=== PATIENT | female | born 1995 | race Caucasian/White ===

== ENCOUNTER 2018-01-08 14:04 | Emergency (ER) | payer OTHER ==
[~2018-01-08] VITALS: Ht 160 cm; Wt 68.0 kg
[~2018-01-08 14:04] MED LIST: AMOXICILLIN 50500 MG PO; FLAGYL500 MG PO; IBUPROFEN 800800 M1 PO; MEDROLDOSEPACK PO; NAPROSYN500 MG PO; NORCO 5-325 TA1 EACH PO; ONDANSETRON HCL4 M2 PO; TORADOL 10 MG T10 MG PO; TRAMADOL 50 MG50 MG PO; ZOFRAN ODT4 MG PO; ZOFRAN4 MG PO
[2018-01-08 14:13] VITALS: BP 85/48
[2018-01-08] MEDS ORDERED: PENICILLIN VK500 MG PO (15:09)
[2018-01-08] MEDS ORDERED: NORCO 5-325 TA1 EACH PO (15:09)
== END 2018-01-08 15:23 | disposition home or self-care (01) ==
LOC: M.ERS 14:04
DX: K08.89 Other specified disorders of teeth and supporting structures (principal); J45.909 Unspecified asthma, uncomplicated; F17.200 Nicotine dependence, unspecified, uncomplicated; Z90.89 Acquired absence of other organs; Z98.890 Other specified postprocedural states; Z91.040 Latex allergy status; Z88.4 Allergy status to anesthetic agent

== ENCOUNTER 2018-09-29 16:39 | Emergency (ER) | payer OTHER ==
[~2018-09-29] VITALS: Ht 160 cm; Wt 74.8 kg
[~2018-09-29 16:39] MED LIST changes: +PENICILLIN VK500 MG PO
[2018-09-29 17:50] LABS: URINE BILIRUBIN NEGATIVE (Negative); URINE BLOOD 3+ (Negative); URINE CLARITY CLEAR; URINE COLOR YELLOW; URINE GLUCOSE-RANDOM NEGATIVE (Negative); URINE KETONES NEGATIVE (Negative); URINE LEUKOCYTES-REFLEX 2+ (Negative); URINE NITRITE-REFLEX NEGATIVE (Negative); URINE PROTEIN TRACE (Negative); URINE UROBILINOGEN 0.2 E.U./dl (0.2-1.0)
[2018-09-29 17:56] LABS: MUCUS None Seen strn/LPF (None Seen); SQUAMOUS >10 Many /LPF (0-3)
[2018-09-29 17:57] LABS: BACTERIA-REFLEX 1-9 Few /HPF (None Seen)
[2018-09-29 17:58] LABS: CASTS None Seen /LPF (None Seen); CRYSTALS None Seen /LPF (None Seen); URINE WBC-REFLEX 6-15 Few /HPF (0-5)
[2018-09-29 18:21] LABS: ABSOLUTE BASOPHILS 0.1 thou/uL (0.0-0.2); ABSOLUTE EOSINOPHILS 0.4 thou/uL (0.0-0.7); ABSOLUTE LYMPHOCYTES 2.4 thou/uL (0.8-5.3); ABSOLUTE MONOCYTES 0.5 thou/uL (0.0-1.2); ABSOLUTE NEUTROPHILS 3.3 thou/uL (1.6-8.1); BASOPHILS 0.9 %; EOSINOPHILS 6.3 %; HEMATOCRIT 38.4 % (37.0-47.0); HEMOGLOBIN 13.2 gm/dL (12.0-15.0); LYMPHOCYTES 35.3 %; MCH 30.5 pg (26.0-34.0); MCHC 34.4 g/dL (28.0-37.0); MCV 88.7 fL (80.0-100.0); MONOCYTES 8.2 %; MPV 9.9 fl. (7.2-11.1); NUCLEATED RBCS 0 /100WBC; PLATELET COUNT* 163 thou/uL (150-400); POLYS 49.3 %; RBC 4.33 mil/uL (4.20-5.00); WBC 6.7 thou/uL (4.0-11.0)
[2018-09-29 19:01] LABS: ALBUMIN 3.6 g/dL (3.4-5.0); CALCIUM 8.8 mg/dL (8.5-10.1); CREATININE 0.7 mg/dL (0.6-1.3); POTASSIUM 3.5 mmol/L (3.5-5.1); TOTAL BILIRUBIN 0.1 mg/dL (<0.1-1.0); TOTAL PROTEIN 7.2 g/dL (6.4-8.2)
[2018-09-29] MEDS ORDERED: BACTRIM DS TAB1 EACH PO (19:17)
[2018-09-29 19:32] VITALS: BP 118/76
== END 2018-09-29 19:33 | disposition home or self-care (01) ==
LOC: M.ERS 16:39
PROVIDERS: Nurse Practitioner Family
DX: N39.0 Urinary tract infection, site not specified (principal); F17.200 Nicotine dependence, unspecified, uncomplicated; Z91.040 Latex allergy status; Z88.4 Allergy status to anesthetic agent; J45.909 Unspecified asthma, uncomplicated; Z90.49 Acquired absence of other specified parts of digestive tract; Z98.890 Other specified postprocedural states

== ENCOUNTER 2018-10-02 15:59 | Emergency (ER) | payer OTHER ==
[~2018-10-02] VITALS: Ht 160 cm; Wt 74.8 kg
[~2018-10-02 15:59] MED LIST changes: +BACTRIM DS TAB1 EACH PO
[2018-10-02 16:29] LABS: URINE BLOOD 3+ (Negative); URINE CLARITY CLEAR; URINE COLOR YELLOW; URINE GLUCOSE-RANDOM NEGATIVE (Negative); URINE KETONES TRACE (Negative); URINE LEUKOCYTES-REFLEX 1+ (Negative); URINE NITRITE-REFLEX NEGATIVE (Negative); URINE PROTEIN 1+ (Negative); URINE SPECIFIC GRAVITY >= 1.030 (1.005-1.030)
[2018-10-02 16:31] LABS: ICTOTEST (BILI CONFIRMATORY) Negative (Negative); URINE BILIRUBIN 1+ (Negative)
[2018-10-02 16:53] LABS: ABSOLUTE BASOPHILS 0.1 thou/uL (0.0-0.2); ABSOLUTE EOSINOPHILS 0.3 thou/uL (0.0-0.7); ABSOLUTE LYMPHOCYTES 2.3 thou/uL (0.8-5.3); ABSOLUTE MONOCYTES 0.6 thou/uL (0.0-1.2); ABSOLUTE NEUTROPHILS 2.6 thou/uL (1.6-8.1); BASOPHILS 0.9 %; EOSINOPHILS 5.7 %; HEMATOCRIT 37.1 % (37.0-47.0); HEMOGLOBIN 12.7 gm/dL (12.0-15.0); LYMPHOCYTES 39.3 %; MCH 30.3 pg (26.0-34.0); MCHC 34.1 g/dL (28.0-37.0); MCV 88.7 fL (80.0-100.0); MONOCYTES 10.5 %; MPV 9.7 fl. (7.2-11.1); NUCLEATED RBCS 0 /100WBC; PLATELET COUNT* 150 thou/uL (150-400); POLYS 43.6 %; RBC 4.18 mil/uL (4.20-5.00); RDW-CV 13.2 % (10.5-14.5); WBC 5.9 thou/uL (4.0-11.0)
[2018-10-02 16:56] LABS: MUCUS >6 Heavy strn/LPF (None Seen); SQUAMOUS >10 Many /LPF (0-3)
[2018-10-02 16:57] LABS: BACTERIA-REFLEX 1-9 Few /HPF (None Seen); CASTS None Seen /LPF (None Seen); CRYSTALS None Seen /LPF (None Seen); URINE RBC >20 Many /HPF (0-2)
[2018-10-02 17:04] LABS: ALBUMIN 3.6 g/dL (3.4-5.0); ALKALINE PHOSPHATASE 65 U/L (46-116); ANION GAP 12 mmol/L (7-16); BUN 11 mg/dL (7-18); CALCIUM 8.7 mg/dL (8.5-10.1); CHLORIDE 106 mmol/L (98-107); CO2 24 mmol/L (21-32); CREATININE 0.9 mg/dL (0.6-1.3); GLUCOSE 83 mg/dL (70-99); LIPASE 90 U/L (73-393); POTASSIUM 3.9 mmol/L (3.5-5.1); SGOT 10 U/L (15-37); SGPT 13 U/L (30-65); SODIUM 142 mmol/L (136-145); TOTAL PROTEIN 6.9 g/dL (6.4-8.2)
[2018-10-02 17:05] LABS: TOTAL BILIRUBIN < 0.1 mg/dL (<0.1-1.0)
[2018-10-02] MEDS ORDERED: DOXYCYCLINE MO100 M1 PO (18:54)
[2018-10-02] MEDS ORDERED: NAPROSYN500 MG PO (18:54)
[2018-10-02] MEDS ORDERED: HYDROCODONE-AP1 EAC6 PO (18:54)
[2018-10-02 19:21] VITALS: BP 100/70
== END 2018-10-02 19:16 | disposition home or self-care (01) ==
LOC: M.ERS 15:59
PROVIDERS: Physician Assistant
DX: N73.9 Female pelvic inflammatory disease, unspecified (principal); N39.0 Urinary tract infection, site not specified; J45.909 Unspecified asthma, uncomplicated; Z90.49 Acquired absence of other specified parts of digestive tract; Z98.890 Other specified postprocedural states; Z91.040 Latex allergy status; Z88.4 Allergy status to anesthetic agent

== ENCOUNTER 2019-04-28 14:49 | Emergency (ER) | payer OTHER ==
[~2019-04-28] VITALS: Ht 160 cm; Wt 72.6 kg
[~2019-04-28 14:49] MED LIST changes: +DOXYCYCLINE MO100 M1 PO; +HYDROCODONE-AP1 EAC6 PO
[2019-04-28 15:27] LABS: URINE BLOOD 3+ (Negative); URINE CLARITY CLOUDY; URINE COLOR YELLOW; URINE GLUCOSE-RANDOM NEGATIVE (Negative); URINE KETONES NEGATIVE (Negative); URINE LEUKOCYTES-REFLEX 1+ (Negative); URINE NITRITE-REFLEX NEGATIVE (Negative); URINE PROTEIN 2+ (Negative); URINE SPECIFIC GRAVITY >= 1.030 (1.005-1.030)
[2019-04-28 15:29] LABS: ICTOTEST (BILI CONFIRMATORY) Negative (Negative); URINE BILIRUBIN 2+ (Negative)
[2019-04-28 15:35] LABS: SQUAMOUS >10 Many /LPF (0-3)
[2019-04-28 15:36] LABS: URINE RBC >20 Many /HPF (0-2); URINE WBC-REFLEX 6-15 Few /HPF (0-5)
[2019-04-28 15:38] LABS: CASTS None Seen /LPF (None Seen); CRYSTALS None Seen /LPF (None Seen); MUCUS 0-3 Light strn/LPF (None Seen)
[2019-04-28] MEDS ORDERED: MACROBID 100 M100 M2 PO (15:49)
[2019-04-28] MEDS ORDERED: ONDANSETRON HCL4 M2 PO (15:49)
[2019-04-28] MEDS ORDERED: PYRIDIUM100 M1 PO (15:49)
[2019-04-28 16:13] VITALS: BP 125/80
== END 2019-04-28 16:13 | disposition home or self-care (01) ==
LOC: M.ERS 14:49
PROVIDERS: Nurse Practitioner Family
DX: N39.0 Urinary tract infection, site not specified (principal); J45.909 Unspecified asthma, uncomplicated; F17.210 Nicotine dependence, cigarettes, uncomplicated; Z91.040 Latex allergy status; Z88.8 Allergy status to other drugs, medicaments and biological substances; Z98.890 Other specified postprocedural states

== ENCOUNTER 2019-07-04 01:24 | Emergency (ER) | payer OTHER ==
[~2019-07-04] VITALS: Ht 160 cm; Wt 72.6 kg
[~2019-07-04 01:24] MED LIST changes: +MACROBID 100 M100 M2 PO; +PYRIDIUM100 M1 PO
[2019-07-04] MEDS ORDERED: AUGMENTIN 875-1 EACH PO (02:14)
[2019-07-04] MEDS ORDERED: NORCO 5-325 TA1 EAC1 PO (02:14)
[2019-07-04 02:35] VITALS: BP 112/73
== END 2019-07-04 02:35 | disposition home or self-care (01) ==
LOC: M.ERS 01:24
DX: J32.9 Chronic sinusitis, unspecified (principal); J45.909 Unspecified asthma, uncomplicated; F17.210 Nicotine dependence, cigarettes, uncomplicated; Z90.89 Acquired absence of other organs; Z91.040 Latex allergy status

== ENCOUNTER 2019-09-17 11:12 | Emergency (ER) | payer OTHER ==
[~2019-09-17] VITALS: Ht 160 cm; Wt 72.6 kg
[~2019-09-17 11:12] MED LIST changes: +AUGMENTIN 875-1 EACH PO; +NORCO 5-325 TA1 EAC1 PO
[2019-09-17 11:53] LABS: INFLUENZA A ANTIGEN Negative (Negative); INFLUENZA B ANTIGEN Negative (Negative)
[2019-09-17] MEDS ORDERED: TYLENOL WITH CO1 TA1 PO (11:59)
[2019-09-17] MEDS ORDERED: TAMIFLU75 MG PO (11:59)
[2019-09-17] MEDS ORDERED: PROAIR HFA8.5 GM INH (11:59)
[2019-09-17 12:30] VITALS: BP 138/83
== END 2019-09-17 12:30 | disposition home or self-care (01) ==
LOC: M.ERS 11:12
PROVIDERS: Physician Assistant
DX: R05 Cough (principal); R50.9 Fever, unspecified; J45.909 Unspecified asthma, uncomplicated; F17.210 Nicotine dependence, cigarettes, uncomplicated; F15.90 Other stimulant use, unspecified, uncomplicated; Z88.8 Allergy status to other drugs, medicaments and biological substances; Z91.040 Latex allergy status

== ENCOUNTER 2019-10-21 10:38 | Emergency (ER) | payer OTHER ==
[~2019-10-21] VITALS: Ht 160 cm; Wt 74.8 kg
[~2019-10-21 10:38] MED LIST changes: +PROAIR HFA8.5 GM INH; +TAMIFLU75 MG PO; +TYLENOL WITH CO1 TA1 PO
[2019-10-21 11:07] LABS: URINE BILIRUBIN NEGATIVE (Negative); URINE BLOOD 1+ (Negative); URINE CLARITY CLEAR; URINE COLOR YELLOW; URINE GLUCOSE-RANDOM NEGATIVE (Negative); URINE KETONES NEGATIVE (Negative); URINE NITRITE-REFLEX NEGATIVE (Negative); URINE PROTEIN NEGATIVE (Negative); URINE SPECIFIC GRAVITY 1.015 (1.005-1.030); URINE UROBILINOGEN 0.2 E.U./dl (0.2-1.0)
[2019-10-21 11:11] LABS: URINE LEUKOCYTES-REFLEX 3+ (Negative)
[2019-10-21 11:19] LABS: SQUAMOUS 4-10 Moderate /LPF (0-3)
[2019-10-21 11:20] LABS: CASTS None Seen /LPF (None Seen); CRYSTALS None Seen /LPF (None Seen); MUCUS None Seen strn/LPF (None Seen)
[2019-10-21] MEDS ORDERED: KEFLEX500 M1 PO (11:38)
[2019-10-21 11:59] VITALS: BP 118/72
== END 2019-10-21 12:00 | disposition home or self-care (01) ==
LOC: M.ERS 10:38
PROVIDERS: Nurse Practitioner Psychiatric/Mental Health
DX: N39.0 Urinary tract infection, site not specified (principal); A59.9 Trichomoniasis, unspecified; J45.909 Unspecified asthma, uncomplicated; F17.210 Nicotine dependence, cigarettes, uncomplicated; Z91.040 Latex allergy status; Z88.8 Allergy status to other drugs, medicaments and biological substances; Z98.890 Other specified postprocedural states

== ENCOUNTER 2020-07-05 19:29 | Emergency (ER) | payer OTHER ==
[~2020-07-05] VITALS: Ht 160 cm; Wt 74.8 kg
[~2020-07-05 19:29] MED LIST changes: +KEFLEX500 M1 PO
[2020-07-05] MEDS ORDERED: AMOXICILLIN 50500 MG PO (20:15)
[2020-07-05] MEDS ORDERED: APAP W/CODEINE1 TA2 PO (20:15)
[2020-07-05] MEDS ORDERED: IBUPROFEN 800800 M1 PO (20:15)
[2020-07-05 20:26] VITALS: BP 137/86
== END 2020-07-05 20:26 | disposition home or self-care (01) ==
LOC: M.ERS 19:29
DX: K08.89 Other specified disorders of teeth and supporting structures (principal); R50.9 Fever, unspecified; J45.909 Unspecified asthma, uncomplicated; F17.210 Nicotine dependence, cigarettes, uncomplicated; Z90.49 Acquired absence of other specified parts of digestive tract; Z98.890 Other specified postprocedural states; Z79.2 Long term (current) use of antibiotics

== ENCOUNTER 2020-09-26 16:10 | Emergency (ER) | payer OTHER ==
[~2020-09-26] VITALS: Ht 160 cm; Wt 72.6 kg
[~2020-09-26 16:10] MED LIST changes: +APAP W/CODEINE1 TA2 PO
[2020-09-26 16:59] LABS: ABSOLUTE BASOPHILS 0.1 thou/uL (0.0-0.2); ABSOLUTE EOSINOPHILS 0.5 thou/uL (0.0-0.7); ABSOLUTE LYMPHOCYTES 2.8 thou/uL (0.8-5.3); ABSOLUTE MONOCYTES 0.6 thou/uL (0.0-1.2); ABSOLUTE NEUTROPHILS 5.6 thou/uL (1.6-8.1); EOSINOPHILS 5.4 %; HEMATOCRIT 41.4 % (37.0-47.0); LYMPHOCYTES 29.2 %; MCH 30.9 pg (26.0-34.0); MCHC 33.8 g/dL (28.0-37.0); MCV 91.4 fL (80.0-100.0); MONOCYTES 6.1 %; MPV 9.4 fl. (7.2-11.1); NUCLEATED RBCS 0 /100WBC; PLATELET COUNT* 180 thou/uL (150-400); POLYS 58.3 %; RBC 4.52 mil/uL (4.20-5.00); WBC 9.6 thou/uL (4.0-11.0)
[2020-09-26 17:06] LABS: CALCIUM 9.8 mg/dL (8.5-10.1); CREATININE 0.8 mg/dL (0.6-1.3); POTASSIUM 3.8 mmol/L (3.5-5.1)
[2020-09-26 17:17] LABS: TOTAL BILIRUBIN 0.3 mg/dL (<0.1-1.0); TOTAL PROTEIN 7.8 g/dL (6.4-8.2)
[2020-09-26] MEDS ORDERED: ZPAK PO (18:21)
[2020-09-26] MEDS ORDERED: MEDROLDOSEPACK PO (18:21)
[2020-09-26] MEDS ORDERED: VENTOLIN HFA 1818 GM INH (18:21)
[2020-09-26 18:35] VITALS: BP 103/62
--- NOTE | 2020-09-27 12:55 | EKG ---
[place] [address] ELECTROCARDIOGRAM REPORT Name: JACOB SIMON Room: [facility]#: [id number] Admission: 09/26/20 Attend Phys: Discharge: 09/26/20 Date of : [birth year] Date of Service: 09/26/20 1625 Report #: [id number] THIS REPORT FOR: //name// [facility] ED Test Date: 2020-09-26 Test Time: 16:25:27 Pat Name: JACOB SIMON Department: Room: Gender: F Adult School Teacher: JAKY : 1995 Requested By: Fe Hamlin Order Number: [id number] MD: Sohail Ma Measurements Intervals [place] Rate: 84 P: 50 IN: 147 QRS: 3 QRSD: 86 T: 27 QT: 366 QTc: 433 Interpretive Statements Sinus rhythm RSR' in V1 or V2, right VCD Compared to ECG 06/08/2016 18:19:22 RSR' in V1 or V2 now present Electronically Signed On 09-27-2020 12:54:51 CDT by Sohail Ma [email or web address] <ELECTRONICALLY SIGNED> By: Sohail Ma MD, [facility] 09/27/20 1254 1625 1625 Sohail Ma MD, [facility] /EPI
== END 2020-09-26 18:38 | disposition home or self-care (01) ==
LOC: M.ERS 16:10
PROVIDERS: Nurse Practitioner Family
DX: J45.901 Unspecified asthma with (acute) exacerbation (principal); J98.8 Other specified respiratory disorders; Z20.822 Contact with and (suspected) exposure to COVID-19; F17.210 Nicotine dependence, cigarettes, uncomplicated; Z98.890 Other specified postprocedural states; Z87.440 Personal history of urinary (tract) infections

== ENCOUNTER 2020-11-14 20:50 | Emergency (ER) | payer OTHER ==
[~2020-11-14] VITALS: Ht 160 cm; Wt 72.6 kg
[~2020-11-14 20:50] MED LIST changes: +VENTOLIN HFA 1818 GM INH; +ZPAK PO
[2020-11-14 22:06] LABS: URINE BILIRUBIN NEGATIVE (Negative); URINE BLOOD 1+ (Negative); URINE CLARITY CLOUDY; URINE COLOR YELLOW; URINE GLUCOSE-RANDOM NEGATIVE (Negative); URINE KETONES NEGATIVE (Negative); URINE LEUKOCYTES-REFLEX 1+ (Negative); URINE NITRITE-REFLEX NEGATIVE (Negative); URINE PROTEIN TRACE (Negative); URINE SPECIFIC GRAVITY >= 1.030 (1.005-1.030)
[2020-11-14 22:13] LABS: MUCUS 4-6 Moderate strn/LPF (None Seen); SQUAMOUS >10 Many /LPF (0-3)
[2020-11-14 22:14] LABS: BACTERIA-REFLEX 1-9 Few /HPF (None Seen); CASTS None Seen /LPF (None Seen); CRYSTALS None Seen /LPF (None Seen); URINE RBC 0-2 Rare /HPF (0-2)
[2020-11-14] MEDS ORDERED: TRAMADOL 50 MG50 MG PO (22:39)
[2020-11-14] MEDS ORDERED: MACROBID 100 M100 M1 PO (22:39)
[2020-11-14] MEDS ORDERED: PYRIDIUM200 MG PO (22:39)
[2020-11-14] MEDS ORDERED: ZOFRAN ODT4 MG PO (22:42)
[2020-11-14] MEDS ORDERED: DIFLUCAN150 MG PO (22:53)
[2020-11-14 23:01] VITALS: BP 112/62
== END 2020-11-14 23:01 | disposition home or self-care (01) ==
LOC: M.ERS 20:50
PROVIDERS: Nurse Practitioner Family
DX: N39.0 Urinary tract infection, site not specified (principal); J45.909 Unspecified asthma, uncomplicated; F17.210 Nicotine dependence, cigarettes, uncomplicated; Z98.890 Other specified postprocedural states; Z87.440 Personal history of urinary (tract) infections

== ENCOUNTER 2021-02-04 13:57 | Emergency (ER) | payer OTHER ==
[~2021-02-04] VITALS: Ht 157.5 cm; Wt 74.8 kg
[~2021-02-04 13:57] MED LIST changes: +DIFLUCAN150 MG PO; +MACROBID 100 M100 M1 PO; +PYRIDIUM200 MG PO
[2021-02-04] MEDS ORDERED: APAP W/CODEINE1 TA2 PO (15:22)
[2021-02-04] MEDS ORDERED: IBUPROFEN 600600 M1 PO (15:22)
[2021-02-04 15:39] VITALS: BP 111/54
== END 2021-02-04 15:40 | disposition home or self-care (01) ==
LOC: M.ERS 13:57
DX: S80.02XA Contusion of left knee, initial encounter (principal); J45.909 Unspecified asthma, uncomplicated; F17.210 Nicotine dependence, cigarettes, uncomplicated; Z98.890 Other specified postprocedural states; X58.XXXA Exposure to other specified factors, initial encounter; Y93.89 Activity, other specified; Y92.89 Other specified places as the place of occurrence of the external cause; Y99.8 Other external cause status